=== PATIENT | male | born 1985 | race Caucasian/White ===

== ENCOUNTER 2017-10-29 13:33 | Day surgery (SDC) | payer MEDICAID, OTHER ==
[~2017-10-29] VITALS: Ht 182.9 cm; Wt 130.5 kg
[2017-10-29 15:12] VITALS: Ht 182.9 cm; Wt 130.5 kg
[2017-10-29] MEDS ORDERED: NO HOME MEDS (15:27)
[2017-10-29 15:47] VITALS: BP 114/62; PULSE 73; RESP 18
[2017-10-29] MEDS ORDERED: LIDOCAINE 100 MG SYRINGE ONE (16:03)
[2017-10-29] MEDS ORDERED: PROPOFOL 40 ML ONE (16:03)
[2017-10-29] MEDS ORDERED: FENTAnyl 50 MCG/ML VIAL ONE (16:04)
--- NOTE | 2017-10-29 16:39 | OPPN ---
Date/Time of Note Date/Time of Note DATE: 10/29/17 TIME: 16:37 Proc Note GI Procedure Date 10/29/17 Indication: other (Dyspepsia/reflux symptoms) Pre-procedure Diagnosis Dyspepsia/reflux symptoms Post-procedure Diagnosis Impression: Moderate gastritis. Rule out H. pylori infection. Biopsies obtained Otherwise normal EGD Plan: Omeprazole 40 mg daily 3 months Review pathology Follow-up as previously scheduled . Procedure Performed: Endoscopy (Plus biopsies) Surgeon ESTRELLITA PARRA MD See signature line Dairy Consultant none Anesthesia Type: MAC Anesthesiologist: Bran Guthrie M.D. Tourniquet Time none EBL none Transfusion required none Biopsy 1: Gastric body and antrum Grafts/Implants none Tubes/Drains none Complication(s) none Procedure Description After informed consent, with the patient/relatives understanding the procedure, its indications, potential risks and complications, including but not limited to : allergic reaction, bleeding, perforation or infection, and after all pertinent questions were answered to the patients satisfaction, the patient/ relatives signed witnessed informed consent. Following this, premedication was administered slowly IV push under careful cardiovascular and respiratory monitoring with pulse oximetry, automatic blood pressure, and monitor tech. Once the sedative effect was achieved the patient was place in the left lateral decubitus, the panendoscope was introduced and advanced under visual control. Careful examination of the upper gastrointestinal tract, both on insertion as well as withdrawal of the instrument disclosing the following findings: ESOPHAGUS: the mucosa of the entire esophagus was carefully examined and showed the following findings: the mucosa appears within normal limits. There is no evidence of esophagitis, varices, neoplasm, or stricture. No Hiatal Hernia identified. STOMACH: Upon entrance to the stomach air was insufflated, the gastric diaz distended normally. The mucosa of the fundus, body and antrum of the stomach was carefully examined both head-on and on retroflexion, and showed the following findings: There is moderate erythema and edema the mucosa of the body and antrum the stomach. Biopsies were obtained to rule out H. pylori infection. Otherwise the mucosa appears within normal limits with no abnormalities. There is no evidence of ulcers or neoplasm. PYLORUS: The pylorus was carefully examined and showed the following findings: the pylorus appears patent and within normal limits, with no evidence of gastric outlet obstruction. DUODENUM: The duodenal mucosa was carefully examined in the duodenal bulb as well as the second portion of the duodenum and showed the following findings: the mucosa appears unremarkable with no evidence of duodenitis, ulcer or neoplasm. Copies To: CC: ESTRELLITA PARRA MD, MORDO MD Oct 29, 2017 16:39
--- NOTE | 2017-10-29 16:43 | OPPN ---
Date/Time of Note Date/Time of Note DATE: 10/29/17 TIME: 16:39 Proc Note GI Procedure Date 10/29/17 Indication: other (Hematochezia) Pre-procedure Diagnosis Hematochezia Post-procedure Diagnosis Impression: 3 mm pale polyp sigmoid colon. Ablated Otherwise normal colonic mucosa to cecum. Random biopsies obtained right and left colon. Rule out microscopic, lymphocytic or collagenous colitis. Moderate-sized internal hemorrhoids likely source of hematochezia. Otherwise normal colonoscopy to cecum. Plan: Follow up as scheduled] High fiber diet Annual hemoccult stool testing [Review pathology] [Surveillance colonoscopy based on pathology findings. I.e. adenomatous polyp 5 years. Non adenomatous polyp screening at age 50 Procedure Performed: Colonoscopy (With polyp ablation. Colonoscopy with biopsies) Surgeon see signature line Laboratory Machinist none Anesthesia Type: MAC Anesthesiologist: Bran Guthrie M.D. Tourniquet Time none EBL none Transfusion required none Biopsy 1: Right side of the colon Biopsy 2: Left side of the colon Polyp 1: Sigmoid polyp Grafts/Implants none Tubes/Drains none Complication(s) none Disposition: home Procedure Description After informed consent, with the patient/relatives understanding the procedure, its indications and potential risks and complications, including but not limited to: Allergic reaction, bleeding, perforation, infection, and after all pertinent questions were answered to the patient's satisfaction, the patient/ relatives signed the witnessed informed consent. Following this, premedication was administered slowly IV push under careful cardiovascular and respiratory monitoring with pulse OXIMETRY, automatic blood pressure, and telemetry monitor. Once the sedative effect was achieved, the patient was placed in the left lateral decubitus position, digital rectal examination was performed. The colonoscope was then introduced and advanced under visual control throughout all segments of the colon including: the rectum, sigmoid, descending colon, splenic flexure, transverse colon, hepatic flexure, ascending colon and finally reaching the cecum which was clearly identified by transillumination, finger indentation and the ileocecal valve. Careful examination of the mucosa of the lower gastrointestinal tract both on insertion as well as withdrawal of the instrument disclosed the following findings: PREPARATION QUALITY: [Adequate], RECTAL EXAM: The anorectal area was visualized examined and digital rectal examination performed with the following findings: No evidence of perirectal disease, no masses. COLONIC MUCOSA: The mucosa of all segments of the colon was carefully examined and showed the following findings: There is a 3 mm pale polyp in sigmoid colon. Ablated. Random biopsies were obtained of the right and left side of the colon to rule out microscopic, lymphocytic or collagenous colitis. Moderate-sized internal hemorrhoids are present. Otherwise the examined mucosa appears within normal limits. There is no evidence of inflammatory changes, diverticular formation, other polyps or neoplasms, vascular malformation, or any other abnormality. The instrument was then withdrawn, the patient tolerated the procedure well and was transferred out of the Endoscopy Suite awake and in good condition to continue recovery under observation. Copies To: CC: ESTRELLITA PARRA MD, MORDO MD Oct 29, 2017 16:43
[2017-10-29 17:07] VITALS: BP 118/60; PULSE 70; RESP 18
== END 2017-10-29 20:59 | disposition home or self-care (01) ==
LOC: GIL 13:33
PROVIDERS: ATTEND Internal Medicine Gastroenterology
DX: K92.1 Melena (principal); D12.5 Benign neoplasm of sigmoid colon; K64.8 Other hemorrhoids; K29.70 Gastritis, unspecified, without bleeding; E66.9 Obesity, unspecified; Z68.39 Body mass index [BMI] 39.0-39.9, adult
CPT/HCPCS: 43239; 45380; 88305; 88312; J2001; J3010; Z7610